=== PATIENT | male | born 1965 | race Caucasian/White ===

== ENCOUNTER → 2021-07-30 09:44 | Outpatient (CLI) | payer OTHER, SELFPAY ==
[2021-07-30 19:20] LABS: Hematocrit 46.9 % (41-53)
[2021-07-30 19:51] LABS: Prostate Specific Antigen Scrn 1.33 ng/mL (0.1-4.0)
[2021-07-30 19:54] LABS: Testosterone 632 ng/dL (71.8-623)
== END ==
PROVIDERS: PCP Family Medicine; Visit Provider Student in an Organized Health Care Education/Training Program
DX: E29.1 Testicular hypofunction (principal)
CPT/HCPCS: 84403; 85014; G0103

== ENCOUNTER → 2023-07-10 10:51 | Outpatient (CLI) | payer OTHER, SELFPAY ==
[2023-07-10 19:57] LABS: Hematocrit 45.1 % (41-53); Hemoglobin 15.6 g/dL (13.5-17.5)
[2023-07-10 20:36] LABS: Prostate Specific Antigen 1.97 ng/mL (0.10-4.00)
[2023-07-17 09:22] LABS: Percent Free Testosterone 3.45 % (1.50-4.20); Testosterone Free 27.54 ng/dL (5.00-21.00); Testosterone Total 798.4 ng/dL (264.0-916.0)
== END ==
PROVIDERS: PCP Family Medicine; Visit Provider Student in an Organized Health Care Education/Training Program
DX: R79.89 Other specified abnormal findings of blood chemistry (principal)
CPT/HCPCS: 84153; 84402; 84403; 85014; 85018

== ENCOUNTER → 2024-07-12 11:19 | Outpatient (CLI) | payer OTHER, SELFPAY | PROVIDERS: PCP Physician Assistant Medical; Visit Provider Family Medicine | DX: K65.9 Peritonitis, unspecified (principal) | CPT/HCPCS: 87070; 87075; 87077; 87186; 87205 ==

== ENCOUNTER → 2024-09-09 09:31 | Outpatient (CLI) | payer OTHER, SELFPAY ==
[2024-09-09 19:07] LABS: Alanine Aminotransferase 24 IU/L (<50); Albumin 3.8 g/dL (3.5-5.0); Albumin Globulin Ratio 1.1 (1.0-2.8); Alkaline Phosphatase 66 U/L (38-126); Aspartate Aminotransferase 31 IU/L (17-59); BUN Creatinine Ratio 16.8 (6-22); Bilirubin Total 0.5 mg/dL (0.2-1.3); Blood Urea Nitrogen 25 mg/dL (9-20); Calcium 9.3 mg/dL (8.4-10.2); Carbon Dioxide 25 mmol/L (22-32); Chloride 103 mmol/L (98-107); Estimated Glomerular Filt Rate 54 mL/min (>60); Globulin 3.4 g/dL (1.7-4.1); Glucose 144 mg/dL (70-100); HEMOLYSIS 15 (0-50); Potassium 3.6 mmol/L (3.4-5.1); Sodium 135 mmol/L (137-145); Total Protein 7.2 g/dL (6.3-8.2)
[2024-09-09 19:46] LABS: Bilirubin Urine UA NEGATIVE (NEGATIVE); Color Urine UA ORANGE; Glucose Urine UA TRACE g/dL (Negative); Ketones Urine UA TRACE (NEGATIVE); Leukocyte Esterase Urine UA 1+ (NEGATIVE); Nitrite Urine UA POSITIVE (Negative); Occult Blood Urine UA 3+ (Negative); Protein Urine UA 3+ (Negative); Specific Gravity Urine UA 1.025 (1.000-1.035); pH Urine UA 6.5 (4.5-8.0)
[2024-09-09 19:50] LABS: Appearance Urine UA Cloudy
[2024-09-09 20:06] LABS: Amorphous Sediment Urine 2+; Bacteria Urine Many (>30); Culture Indicated Urine Specimen Cultured; RBC Urine 10-30/HPF (0-5/HPF); Squamous Epithelial Cell Urine 1-5 /HPF (0-5/HPF); Urine Volume 10mL (spun); WBC Urine 5-10/HPF (0-5/HPF)
== END ==
PROVIDERS: PCP Physician Assistant Medical; Visit Provider Physician Assistant
DX: N20.1 Calculus of ureter (principal)
CPT/HCPCS: 80053; 81001; 87086

== ENCOUNTER → 2024-11-28 08:33 | Outpatient (CLI) | payer OTHER, SELFPAY | PROVIDERS: PCP Physician Assistant Medical; Visit Provider Physician Assistant Medical | DX: T81.49XA Infection following a procedure, other surgical site, initial encounter (principal) | CPT/HCPCS: 87070; 87075; 87205 ==

== ENCOUNTER → 2025-01-28 10:45 | Outpatient (CLI) | payer OTHER, SELFPAY | LOC: LAB 13:55 | PROVIDERS: PCP Physician Assistant Medical | DX: K65.1 Peritoneal abscess (principal) | CPT/HCPCS: 80202 ==

== ENCOUNTER → 2025-01-30 14:18 | Outpatient (CLI) | payer OTHER, SELFPAY ==
[2025-01-30 18:55] LABS: Add Manual Diff / Slide Review NO; Basophils Absolute Auto 0 /uL (0-100); Basophils Percent Auto 0.8 % (0-2); Eosinophils Absolute Auto 300 /uL (0-450); Hematocrit 32.3 % (41-53); Hemoglobin 10.6 g/dL (13.5-17.5); Lymphocytes Absolute Auto 900 /uL (1100-4500); Lymphocytes Percent Auto 16.8 % (25-40); Mean Corpuscular HGB Conc 32.8 % (30-36); Mean Corpuscular Hemoglobin 26.8 PG (26-34); Mean Corpuscular Volume 81.6 fL (80-100); Monocytes Absolute Auto 500 /uL (0-900); Monocytes Percent Auto 9.5 % (3-14); Neutrophils Absolute Auto 3600 /uL (1500-7000); Neutrophils Percent Auto 67.9 % (50-75); Platelet Count 233 X10^3/uL (150-400); Red Blood Cell Count 3.96 X10^6/uL (4.5-5.9); White Blood Cell Count 5.3 X10^3/uL (4.5-11.0)
[2025-01-30 18:57] LABS: Alanine Aminotransferase 36 IU/L (<50); Aspartate Aminotransferase 36 IU/L (17-59); Bilirubin Total 0.4 mg/dL (0.2-1.3); Estimated Glomerular Filt Rate > 60 mL/min (>60)
[2025-01-30 19:56] LABS: Microcytosis 1+
== END ==
PROVIDERS: PCP Family Medicine
DX: K65.1 Peritoneal abscess (principal)
CPT/HCPCS: 82247; 82565; 84450; 84460; 85025

== ENCOUNTER → 2025-02-04 10:20 | Outpatient (CLI) | payer OTHER, SELFPAY ==
[2025-02-04 19:48] LABS: Add Manual Diff / Slide Review NO; Basophils Absolute Auto 0 /uL (0-100); Basophils Percent Auto 0.3 % (0-2); Eosinophils Absolute Auto 200 /uL (0-450); Eosinophils Percent Auto 2.5 % (2-4); Hematocrit 34.8 % (41-53); Hemoglobin 11.2 g/dL (13.5-17.5); Lymphocytes Absolute Auto 1000 /uL (1100-4500); Lymphocytes Percent Auto 16.3 % (25-40); Mean Corpuscular HGB Conc 32.2 % (30-36); Mean Corpuscular Hemoglobin 26.9 PG (26-34); Mean Corpuscular Volume 83.6 fL (80-100); Monocytes Absolute Auto 600 /uL (0-900); Monocytes Percent Auto 9.6 % (3-14); Neutrophils Absolute Auto 4400 /uL (1500-7000); Neutrophils Percent Auto 71.3 % (50-75); Platelet Count 197 X10^3/uL (150-400); Red Blood Cell Count 4.16 X10^6/uL (4.5-5.9); White Blood Cell Count 6.1 X10^3/uL (4.5-11.0)
[2025-02-04 19:56] LABS: Alanine Aminotransferase 38 IU/L (<50); Aspartate Aminotransferase 35 IU/L (17-59); Bilirubin Total 0.3 mg/dL (0.2-1.3); Estimated Glomerular Filt Rate > 60 mL/min (>60)
[2025-02-04 20:54] LABS: Anisocytosis 2+; Burr Cells 1+
[2025-02-04 20:55] LABS: Ovalocytes 1+
[2025-02-04 20:58] LABS: Vancomycin Trough 23.3 ug/mL (10-20)
== END ==
PROVIDERS: PCP Family Medicine
DX: K65.1 Peritoneal abscess (principal)
CPT/HCPCS: 80202; 82247; 82565; 84450; 84460; 85025

== ENCOUNTER → 2025-02-05 09:30 | Outpatient (CLI) | payer OTHER, SELFPAY ==
[2025-02-05 19:44] LABS: Vancomycin Trough 15.6 ug/mL (10-20)
== END ==
LOC: LAB 09:31
PROVIDERS: PCP Family Medicine
DX: K65.1 Peritoneal abscess (principal)
CPT/HCPCS: 80202

== ENCOUNTER → 2025-02-11 10:35 | Outpatient (CLI) | payer OTHER, SELFPAY ==
[2025-02-11 19:06] LABS: Add Manual Diff / Slide Review NO; Basophils Absolute Auto 0 /uL (0-100); Basophils Percent Auto 0.5 % (0-2); Eosinophils Absolute Auto 200 /uL (0-450); Eosinophils Percent Auto 3.4 % (2-4); Hematocrit 38.4 % (41-53); Hemoglobin 12.7 g/dL (13.5-17.5); Lymphocytes Absolute Auto 1200 /uL (1100-4500); Lymphocytes Percent Auto 17.3 % (25-40); Mean Corpuscular HGB Conc 33.2 % (30-36); Mean Corpuscular Hemoglobin 27.7 PG (26-34); Mean Corpuscular Volume 83.5 fL (80-100); Monocytes Absolute Auto 600 /uL (0-900); Monocytes Percent Auto 9.4 % (3-14); Neutrophils Absolute Auto 4800 /uL (1500-7000); Neutrophils Percent Auto 69.4 % (50-75); Platelet Count 211 X10^3/uL (150-400); Red Cell Distribution Width 22.6 % (11.6-14.8); White Blood Cell Count 6.9 X10^3/uL (4.5-11.0)
[2025-02-11 19:13] LABS: Alanine Aminotransferase 44 IU/L (<50); Aspartate Aminotransferase 41 IU/L (17-59); Bilirubin Total 0.4 mg/dL (0.2-1.3)
[2025-02-11 19:18] LABS: Anisocytosis 3+
[2025-02-11 19:20] LABS: Vancomycin Trough 16.3 ug/mL (10-20)
[2025-02-11 23:08] LABS: Estimated Glomerular Filt Rate > 60 mL/min (>60)
== END ==
PROVIDERS: PCP Family Medicine
DX: K65.1 Peritoneal abscess (principal)
CPT/HCPCS: 80202; 82247; 82565; 84450; 84460; 85025

== ENCOUNTER → 2025-03-19 11:52 | Outpatient (CLI) | payer OTHER, SELFPAY ==
[2025-03-19 19:50] LABS: Add Manual Diff / Slide Review NO; Basophils Absolute Auto 0 /uL (0-100); Basophils Percent Auto 0.2 % (0-2); Eosinophils Absolute Auto 200 /uL (0-450); Eosinophils Percent Auto 2.3 % (2-4); Hematocrit 40.3 % (41-53); Hemoglobin 13.4 g/dL (13.5-17.5); Lymphocytes Absolute Auto 1200 /uL (1100-4500); Lymphocytes Percent Auto 16.2 % (25-40); Mean Corpuscular HGB Conc 33.3 % (30-36); Mean Corpuscular Hemoglobin 28.2 PG (26-34); Mean Corpuscular Volume 84.6 fL (80-100); Monocytes Absolute Auto 800 /uL (0-900); Monocytes Percent Auto 10.3 % (3-14); Neutrophils Absolute Auto 5200 /uL (1500-7000); Platelet Count 235 X10^3/uL (150-400); Red Blood Cell Count 4.77 X10^6/uL (4.5-5.9); Red Cell Distribution Width 19.7 % (11.6-14.8); White Blood Cell Count 7.4 X10^3/uL (4.5-11.0)
[2025-03-19 20:18] LABS: Alanine Aminotransferase 55 IU/L (<50); Albumin 4.4 g/dL (3.5-5.0); Albumin Globulin Ratio 1.6 (1.0-2.8); Alkaline Phosphatase 91 U/L (38-126); Aspartate Aminotransferase 48 IU/L (17-59); BUN Creatinine Ratio 22.4 (6-22); Bilirubin Total 0.4 mg/dL (0.2-1.3); Blood Urea Nitrogen 24 mg/dL (9-20); Calcium 9.9 mg/dL (8.4-10.2); Carbon Dioxide 25 mmol/L (22-32); Chloride 100 mmol/L (98-107); Estimated Glomerular Filt Rate > 60 mL/min (>60); Globulin 2.8 g/dL (1.7-4.1); Glucose 74 mg/dL (70-99); HEMOLYSIS 25 (0-50); Magnesium 2.1 mg/dL (1.6-2.3); Phosphorous 4.8 mg/dL (2.5-4.5); Potassium 4.5 mmol/L (3.4-5.1); Sodium 137 mmol/L (137-145); Total Protein 7.2 g/dL (6.3-8.2)
[2025-03-19 20:46] LABS: Prealbumin 25.5 mg/dL (17.6-36.0)
== END ==
PROVIDERS: PCP Family Medicine
DX: K63.2 Fistula of intestine (principal)
CPT/HCPCS: 80053; 83735; 84100; 84134; 85025

== ENCOUNTER → 2025-07-21 14:46 | Outpatient (CLI) | payer OTHER, SELFPAY | PROVIDERS: PCP Family Medicine; Visit Provider Physician Assistant | DX: S31.109A Unspecified open wound of abdominal wall, unspecified quadrant without penetration into peritoneal cavity, initial encounter (principal) | CPT/HCPCS: 87070; 87075; 87102; 87205 ==